=== PATIENT | female | born 1980 | race Caucasian/White ===

== ENCOUNTER 2022-03-25 11:48 | Emergency (ER) | payer SELFPAY ==
[~2022-03-25] VITALS: Ht 162.6 cm; Wt 73.8 kg
[2022-03-25 11:57] VITALS: BP 135/87
[2022-03-25 12:00] VITALS: BP 131/83
[2022-03-25 12:15] VITALS: BP 130/88
[2022-03-25 12:30] VITALS: BP 114/79
[2022-03-25 15:05] VITALS: BP 114/79
== END 2022-03-25 15:14 | disposition home or self-care (01) | DRG 605 ==
LOC: ED 11:48
DX: S80.11XA Contusion of right lower leg, initial encounter (principal); X58.XXXA Exposure to other specified factors, initial encounter